=== PATIENT | male | born 1970 | race Caucasian/White ===

== ENCOUNTER → 2016-11-05 | Outpatient (CLI) | payer OTHER ==
[2016-11-05 18:53] LABS: HEMOGLOBIN 15.2 g/dL (14.1-18.0); LYMPH # 2.4 K/mm3 (0.7-4.5); LYMPH % 27.3 % (10-50)
[2016-11-05 19:43] LABS: BUN 11 mg/dL (7-18)
[2016-11-05 19:44] LABS: GFR (ESTIMATED) 80 ML/MIN (>60)
[2016-11-07 08:43] LABS: PSA, Free 0.26 ng/mL; Prostate Specific Ag 0.8 ng/mL (0.0-4.0)
== END ==
LOC: LAB 18:17
PROVIDERS: Emergency Medicine
DX: R35.0 Frequency of micturition (principal)